=== PATIENT | female | born 1935 | race Caucasian/White ===

== ENCOUNTER 2016-05-27 00:44 | Emergency (ER) | payer OTHER, MEDICARE | END 2016-05-27 03:49 | disposition home or self-care (01) | LOC: ER 00:44 | DX: M43.6 Torticollis (principal); E78.5 Hyperlipidemia, unspecified; I10 Essential (primary) hypertension; Z90.710 Acquired absence of both cervix and uterus; Z79.82 Long term (current) use of aspirin; Z79.899 Other long term (current) drug therapy | CPT/HCPCS: 96374; 96375 ==